=== PATIENT | female | born 1990 | race Caucasian/White ===

== ENCOUNTER 2021-11-08 12:01 | Emergency (ER) | payer OTHER, SELFPAY ==
--- NOTE | 2021-11-08 12:17 | ED.FEMALEGU ---
HPI - Female Genitourinary General Chief complaint: Vaginal Bleeding Stated complaint: 17 weeks spotting Time Seen by Provider: 11/08/21 12:17 Source: patient History of Present Illness HPI Narrative: 31-year-old female A0, 16 per ultrasound, hypothyroidism, Anxiety on Lamictal/ativan presents to the ER when she noted -- blood tinged pantyhose liner when she got up to use the restroom. No active bleeding. No uterine pain. No prior spotting / vaginal bleeding. No complications during this / delivery. MD elicited complaint: vaginal bleeding and vaginal discharge Onset (ago): minute(s) ( 30 minutes ago) Vaginal bleeding: scant Exacerbating factors: none Relieving factors: none Associated symptoms: denies other symptoms Treatment prior to arrival: none Patient : Yes Date of Last Menstrual Period: 06/30/21 Expected Date of Delivery: 04/15/22 Related Data : 1 Para: 1 Total number of abortions (spontaneous and elective): 0 Home Medications Medication Instructions Recorded Confirmed lamotrigine [Lamictal] 25 mg BID 11/08/21 11/08/21 levothyroxine [Synthroid] 25 mcg BID 11/08/21 11/08/21 lorazepam [Ativan] 0.5 mg BID PRN 11/08/21 11/08/21 Allergies Allergy/AdvReac Type Severity Reaction Status Date / Time Penicillins Allergy Hives Verified 11/08/21 12:28 Review of Systems Review of Systems: All systems reviewed & are unremarkable except as noted in HPI and below Constitutional: Constitutional: Reports as per HPI and Reports no additional constitutional complaints Eyes: Eyes: Reports as per HPI and Reports no additional eye complaints ENT: Reports system reviewed and no additional complaints, except as documented and Reports as per HPI Cardiovascular: Cardiovascular: Reports as per HPI and Reports no additional cardiovascular complaints Respiratory: Respiratory: Reports as per HPI and Reports no additional respiratory complaints Gastrointestinal: Gastrointestinal: Reports as per HPI and Reports no additional gastrointestinal complaints Genitourinary: Genitourinary: Reports no additional female genitourinary complaints and Reports abnormal vaginal bleeding Musculoskeletal: Musculoskeletal: Reports no additional musculoskeletal complaints and Reports as per HPI Integumentary/Breasts: Skin/Breast: Reports system reviewed and no additional complaints, except as docu Neurologic: Reports system reviewed and no additional complaints, except as documented and Reports as per HPI Psychiatric: Psychiatric: Reports no additional psychiatric complaints and Reports as per HPI Endocrine: Endocrine: Reports no additional endocrine complaints and Reports as per HPI Hematologic/Lymphatic: Hematologic/Lymphatic: Reports no additional hematologic/lymphatic complaints and Reports as per HPI Allergic/Immunologic: Allergic/Immunologic: Reports no additional allergic/immunologic complaints and Reports as per HPI Exam Const: General: no acute distress and alert Orientation/consciousness: patient oriented x3 HENMT: Head: normal to inspection Eyes: General: appearance normal, both eyes and all related structures Pupils: Equal, round and reactive pupils present Neck: Neck: normal visual inspection, no lymphadenopathy and no meningeal signs Chest: Chest palpation & inspection: normal inspection of the chest Resp: Effort & Inspection: normal respiratory effort Auscultation: clear to auscultation bilaterally Cardio: Rate: regular rate Rhythm: regular rhythm GI: GI Palp: Yes Soft to palpation Other: fundus is felt between the pubic symphysis and the umbilicus. heart tones 143 no abdominal tenderness / rigidity /rebound. : General: Yes no CVA tenderness External Female Exam: normal external appearance Speculum Exam - Vagina: abnormal vaginal discharge Speculum Exam - Cervix: Cervical os closed Bimanual Exam- Adnexa, other: no masses and No adnexal tenderness O
[2021-11-08 12:35] VITALS: BP 106/65; PULSE 90; RESP 16; TEMP 36.3; O2SAT 100
[2021-11-08 12:52] LABS: Add Urine Microscopic? YES; Appearance Urine Clear (Clear); Basophils Absolute Auto 0.04 K/mm3 (0.00-0.10); Basophils Percent Auto 0.4 % (0.0-1.0); Bilirubin Urine Negative (Negative); Blood Urine Negative (Negative); Color Urine Light Yellow (Yellow); Eosinophils Absolute Auto 0.26 K/mm3 (0.02-0.50); Eosinophils Percent Auto 2.3 % (1.0-6.0); Glucose Urine UA Negative (Negative); Hematocrit 32.1 % (35.0-49.0); Hemoglobin 10.8 g/dL (12.0-15.0); Immature Granulocyte Absolute 0.04 K/mm3 (0.00-0.00); Immature Granulocyte Percent A 0.4 % (0.0-0.0); Ketones Urine Negative (Negative); Leukocyte Esterase Ur 2+ (Negative); Lymphocytes Absolute Auto 1.21 K/mm3 (1.10-4.50); Lymphocytes Percent Auto 10.9 % (18.0-42.0); Mean Corpuscular HGB Conc 33.6 g/dL (32.0-36.0); Mean Corpuscular Hemoglobin 31.8 pg (27.0-31.0); Mean Corpuscular Volume 94.4 fL (78.0-102.0); Monocytes Percent Auto 7.2 % (2.0-11.0); Neutrophils Absolute Auto 8.8 K/mm3 (1.7-7.2); Neutrophils Percent Auto 78.8 % (50.0-70.0); Nitrate Urine Negative (Negative); Platelet Count Result 221 K/mm3 (150-420); Protein Urine Negative (Negative); Red Cell Distribution Width 13.5 % (11.6-14.4); Specific Grav Ur <= 1.005 (1.010-1.020); Urobilinogen Urine 0.2 mg/dL (0.2-1.0); White Blood Count 11.1 K/mm3 (4.8-10.8); pH Urine 5.5 (5.0-8.0)
[2021-11-08 12:55] LABS: RBC Urine None seen /hpf (0-2)
[2021-11-08 12:56] LABS: Bacteria Urine Trace /hpf; Squamous Epithelial Cell Urine Few /hpf (Few)
[2021-11-08 13:05] LABS: Partial Thromboplastin Time 21.1 SEC (23.90-30.70); Prothrombin Time 10.6 Seconds (9.50-12.10)
[2021-11-08 13:14] LABS: Alanine Aminotransferase 18 U/L (14-59); Albumin Level 2.9 g/dL (3.4-5.0); Alkaline Phosphatase 62 U/L (46-116); Anion Gap 9 mmol/L (8-16); Aspartate Amino Transferase 16 U/L (15-37); Bilirubin,Total 0.1 mg/dL (0.00-1.00); Blood Urea Nitrogen 9 mg/dL (7-18); Calcium 8.3 mg/dL (8.5-10.1); Carbon Dioxide 24 mmol/L (21-32); Chloride 104 mmol/L (98-108); Estimated Glomerular Filt Rate > 60; Glucose 72 mg/dL (70-99); Lipase 125 U/L (73-393); Osmolality Calculated 281 mOsm/kg (285-295); Potassium 3.9 mmol/L (3.5-5.1); Sodium 137 mmol/L (136-145); Thyroid Stimulating Hormone 1.22 uIU/mL (0.36-3.74); Total Protein 5.9 g/dL (6.4-8.2)
--- NOTE | 2021-11-08 13:57 | PC.NURSE ---
Assisted ERP with pelvic exam. No blood noted. Moderate amount of yellowish discharge noted. Swabs collected and sent to lab. Pt tolerated procedure well.
[2021-11-08] MEDS: metroNIDAZOLE 250 MG TABLET 500 MG PO (15:07)
--- NOTE | 2021-11-08 15:08 | PC.NURSE ---
ERP to bedside to discuss pt's test results. ERP will write antibiotic Px for also since they are from out of town and he cannot see PCP immediately for treatment.
[2021-11-08 15:16] VITALS: BP 92/53; PULSE 79; RESP 16; O2SAT 100
== END 2021-11-08 15:18 | disposition home or self-care (01) ==
PROVIDERS: Emergency Provider Internal Medicine Critical Care Medicine
DX: A59.9 Trichomoniasis, unspecified (principal); O46.92 Antepartum hemorrhage, unspecified, second trimester; E03.9 Hypothyroidism, unspecified
CPT/HCPCS: 36415; 80053; 81001; 83690; 84443; 85025; 85610; 85730; 87210; 87491; 87591; 87661; 99284; A9270